=== PATIENT | male | born 1975 | race Caucasian/White ===

== ENCOUNTER 2018-10-09 09:11 | Emergency (ER) | payer OTHER ==
[~2018-10-09] VITALS: Ht 180.3 cm; Wt 104.3 kg
[2018-10-09] MEDS ORDERED: CHILDREN'S ASPI81 M1 PO (09:23)
[2018-10-09] MEDS ORDERED: KEFLEX500 M1 PO (09:27)
[2018-10-09 09:35] VITALS: BP 160/91
== END 2018-10-09 09:36 | disposition home or self-care (01) ==
LOC: M.ERS 09:11
DX: S51.011D Laceration without foreign body of right elbow, subsequent encounter (principal); L08.9 Local infection of the skin and subcutaneous tissue, unspecified; X58.XXXD Exposure to other specified factors, subsequent encounter